=== PATIENT | female | born 2000 | race Asian ===

== ENCOUNTER 2018-07-13 00:58 | Emergency (ER) | payer OTHER ==
[2018-07-13] MEDS ORDERED: ONDANSETRON DISINTEGRATING 4 MG TAB PO ONE ×2 (01:02→02:21)
--- NOTE | 2018-07-13 01:03 | EDPHY ---
H & P Stated Complaint: alcohol intoxication Time Seen by Provider: 07/13/18 00:59 HPI/ROS: CHIEF COMPLAINT: Alcohol intoxication HISTORY OF PRESENT ILLNESS: The patient is a university student. Patient was found by bystanders at a [facility] to be severely intoxicated and therefore they called EMS system. She has vomited once or twice. Patient denies any injuries , denies loss of consciousness, denies any recent trauma. Patient denies coingestion, patient denies suicidal or homicidal behavior. REVIEW OF SYSTEMS: 10 systems were reviewed and negative with the exception of the elements mentioned in the history of present illness. PAST MEDICAL HISTORY: None PAST SURGICAL HISTORY: None SOCIAL HISTORY: Student, single, denies tobacco or drug use, drinks alcohol occasionally PHYSICAL EXAM: General Appearance: Alert, well hydrated, appropriate, and non-toxic appearing. Head: Atraumatic without scalp tenderness or obvious injury Eyes: Pupils equal, round, reactive to light, no injection. Ears: Clear bilaterally, no perforation, normal landmarks Nose: Atraumatic, no rhinorrhea, clear. Throat: mucus membranes moist. Neck: Supple, non-tender, no lymphadenopathy. Respiratory: No retractions, no distress, no wheezes, and no accessory muscle use. Lungs are clear to auscultation bilaterally. Cardiovascular: Regular rate and rhythm, no murmurs, rubs, or gallops. Gastrointestinal: Abdomen is soft, non-tender, non-distended Musculoskeletal: Normal active ROM of all extremities, atraumatic. Neurological: Alert, appropriate, and interactive. Moves all extremities equally. Skin: No rashes, good turgor, no nodules on palpation. MEDICAL DECISION MAKING: I serially examined this patient since the patient's arrival here in the emergency department. The patient continues to become more and more sober with each examination. I serially questioned the patient and the patient's story given initially has not changed. The patient still denies any trauma, any head injury, and any illicit drug use. At this point, the patient is walking the department freely and is clinically sober. We're discharging the patient home with her mother in stable condition. Source: Patient, EMS Exam Limitations: Intoxication Constitutional: Initial Vital Signs Temperature (C) 36.7 C 07/13/18 01:05 Heart Rate 104 H 07/13/18 01:05 Respiratory Rate 20 07/13/18 01:05 Blood Pressure 141/88 H 07/13/18 01:05 O2 Sat (%) 98 07/13/18 01:05 O2 Delivery Mode Room Air Allergies/Adverse Reactions: No Known Allergies Allergy (Unverified 07/13/18 01:11) Medical Decision Making - Data Points Medications Given: Discontinued Medications Ondansetron HCl (Zofran Odt) 4 mg PO EDNOW ONE Stop: 07/13/18 01:03 Last Admin: 07/13/18 01:14 Dose: 4 mg Ondansetron HCl (Zofran Odt) 4 mg PO EDNOW ONE Stop: 07/13/18 02:22 Last Admin: 07/13/18 02:25 Dose: 4 mg Departure - Departure Disposition: Home, Routine, Self-Care Clinical Impression: Alcoholic intoxication, Vomiting Condition: Good Instructions: Alcohol Intoxication (ED), At-Risk Alcohol Use (ED) Additional Instructions: Drink responsibly. Referrals: LUBNA Wilson,. [Clinic] - As per Instructions
[2018-07-13 03:30] VITALS: BP 108/68
== END 2018-07-13 03:31 | disposition home or self-care (01) ==
DX: F10.920 Alcohol use, unspecified with intoxication, uncomplicated (principal); R11.10 Vomiting, unspecified